=== PATIENT | female | born 1975 | race Caucasian/White ===

== ENCOUNTER → 2018-01-11 12:07 | Outpatient (CLI) | payer BC, SELFPAY ==
--- NOTE | 2018-01-11 12:21 | BI_ITS ---
MAMMOGRAPHY - BILATERAL SCREENING REASON FOR EXAM: Female, 42 years old. Routine annual screening examination. PERTINENT HISTORY: Aunt with breast cancer. TECHNIQUE: Digital bilateral breast tila (3D mammographic acquisition) in the CC and MLO projections. 2-D mediolateral oblique (MLO) and craniocaudad (CC) views of both breasts were obtained. CAD: Full Field Digital Mammography with Computer Added Detection was performed. COMPARISON: Comparison is made with prior outside examination of October 20, 2016. FINDINGS: Breast Composition: The breasts are heterogeneously dense, which may obscure small masses. There are no dominant masses or suspicious calcifications. No other significant abnormalities are identified. There has been no significant change since the prior study. BI/SCREENING MAMM (CAD), BILAT IMPRESSION: Stable bilateral screening mammogram. Yearly follow-up mammogram recommended. (A) ASSESSMENT CATEGORY: BIRADS Category 1: Negative. A letter regarding these results will be sent to the patient by the facility within 30 days. Approximately 10% of breast cancers are not detected by mammography. A normal mammogram should not delay biopsy of a clinically suspicious abnormality. [id number] Electronically Signed: Omar Shelton MD at 13:15 EDT Tel [phone], Service support ,
== END ==
PROVIDERS: Family Provider Family Medicine; PCP Family Medicine
DX: Z12.31 Encounter for screening mammogram for malignant neoplasm of breast (principal)
CPT/HCPCS: 77063; 77067

== ENCOUNTER 2018-07-21 07:38 | Day surgery (SDC) | payer BC, SELFPAY ==
[2018-07-15 15:31] LABS: Hemoglobin 11.8 g/dl (12.0-15.0); Mean Corp Hgb Conc 31.9 g/gl (32-36); Mean Corpuscular Hgb 29.6 pg (27.0-32.0); Mean Corpuscular Volume 92.7 fL (81-99); Mean Platelet Vol. 9.3 fl (6.2-12.0); Platelet Count 271 K/mm3 (150-450); RBC Distribution Width CV 13.1 % (11.6-14.6); RBC Distribution Width SD 44.3 fl (35.1-43.9); Red Blood Count 3.99 M/mm3 (4.2-5.4); White Blood Count 6.7 K/mm3 (4.4-11.0)
[2018-07-15 15:32] LABS: Scan Indicated on CBC? Y/N NO
[2018-07-21] VITALS (7 sets, daily range): BP systolic 117–127; BP diastolic 80–88; PULSE 66–96; RESP 16; TEMP 36.2–36.5; O2SAT 100; BMI 24.8
[2018-07-21 07:58] LABS: Internal QC Validated? YES +Cl - CLEAR BKGD; Pregnancy, Urine Negative Negative
--- NOTE | 2018-07-21 09:30 | EMB_PTH ---
PATIENT: SHANIA JUSTICE (CASS) LOC: [facility] U#:[id number] AGE/SX: 42/F ROOM: RE07/21/[address]: Dr. Layne Owens, MDDOB: 1975 BED: DIS: 07/21/2018 SPEC #: [id number] RECD: 07/21/18 12:33 STATUS: KARLY ENMA #: [id number] BIMAL: 07/21/18 09:[address]: Layne Owens DEPT: SURGICAL PATHOLOGY RECD BY: Josee Anderson ENTERED: 07/21/18 15:42 SP TYPE: ENDOM BX/C OTHR DR: Dr. Randolph Nash MD Tissues: A - Endometrium, NOS B - Fibrous tissue Procedures: Surgery Specimen Level III Surgery Specimen Level IV HEADER OPERATION: Hysteroscopy, D&C, polypectomy PRE-OP DIAGNOSIS: AUB< endometrial polyp TISSUE SUBMITTED: A. Endometrial curettings, B. Mucosal fibroids MICROSCOPIC DIAGNOSIS A. Endometrium curettings: Polypoid fragments of mildly disordered proliferative endometrium Rare fragments of benign endocervix B. Mucosal fibroids: Mildly disordered proliferative endometrium Smooth muscle tissue fragments suggestive of submucosal leiomyoma AM:yoana 07/22/18 MICROSCOPIC DESCRIPTION Slides are reviewed. GROSS DESCRIPTION A. Received is one container labeled with the patient name and designated endometrial curettings. The specimen consists of multiple irregular fragments of pink-luna soft tissue that in aggregate measure 3 x 2.2 x 0.2 cm. The specimen is totally submitted in one cassette. B. Received is one container labeled with the patient name and designated mucosal fibroid. The specimen consists of multiple irregular fragments of pink-white soft tissue that in aggregate measure 2.5 x 2 x 0.2 cm. The specimen is totally submitted in one cassette. /AM:bina 07/21/18 TC: 5 CPT: 08529 x2
--- NOTE | 2018-07-21 11:00 | PCM.OPRPT ---
Report of Operation Date of Procedure: 07/21/18 Pre-Operative Diagnosis: AUB, Endometrial polyp Post-Operative Diagnosis: AUB, submucosal fibroid Surgery/Procedure Performed:: Hysteroscopy, D&C, Myomectomy with symphion Type of Anesthesia:: MAC Specimen's removed: Endometrial curettings and Submucosal fibroid Drains: none Estimated Blood Loss (mL): 5 Description of Procedure: Informed consent was obtained the patient was taken the operating room she was placed in supine position. She was given anesthesia. She was then placed in the [facility] where she was prepped and draped in the normal sterile fashion. At this time the weighted speculum was placed in the posterior fornix of vagina. Single-tooth tenaculum was used to gently grasp the anterior lip the cervix. At this time the uterine cavity was sounded to approximately 8 cm. Gentle dilatation was performed once adequate dilatation of the cervix was achieved the hysteroscope using normal saline as a distention medium was placed. Approximately 2cm submucosal fibroid noted on left side of endometrium and smaller one noted on posterior aspect. Otherwise no gross abnormalities. The Symphion was used to resect fibroids down to base. Tubal ostia then able to be visualized. At This time hysteroscopy was complete. Sharp curettage was performed. Moderate amount of endometrial tissue removed. This will be sent to pathology for evaluation. Procedure was deemed complete successful there are no complications. Anticipated normal postoperative course. Instrument lap count correct ?2. Fluid deficit 600cc Vaginal Sweep was negative. - Complications none - Admit VTE Documentation VTE Present on Admission: Yes VTE Mechan Device Prophylaxis: SCD's VTE Pharm Prophylaxis ordered?: No
--- NOTE | 2018-07-21 11:06 | DCINST_ITS ---
Discharge Diet: No Restrictions Discharge Activity: Return to Normal Activity, May Shower, May Take a Tub Bath - in 2 weeks. May resume sexual activity in: 2 weeks Call your doctor if you observe: Fever of 101 or Higher, Inability to urinate, Using more than one pad per hour Allergies/Adverse Reactions: Allergies Penicillins Allergy (Verified 07/15/18 13:31) Hives cefdinir Adverse Reaction (Verified 07/15/18 13:31) Unknown moxifloxacin [From Avelox] Adverse Reaction (Verified 07/15/18 13:31) Unknown Medications to take at Discharge loratadine 10 mg disintegrating tablet 10 mg PO DAILY 05/31/18 vitamin E (dl, acetate) 400 unit capsule 400 unit PO DAILY 05/31/18 ascorbic acid (vitamin C) 100 mg tablet 100 mg PO DAILY 06/01/18 fluticasone 50 mcg/actuation nasal spray,suspension 2 spray INTRANASAL DAILY PRN 06/01/18 lactobacillus combination no.4 3 billion cell capsule 3,000 mmu cells PO DAILY 06/01/18 Naproxen Sodium [Aleve] 220 mg PO PRN PRN 07/15/18 Primary Care Physician: Randolph Nash MD [Primary Care Provider] - Test Results: Test results from this visit will be discussed in further detail at your follow- up appointment, if applicable. Please Follow Up With: Layne Owens MD When: as scheduled
== END 2018-07-21 13:00 | disposition home or self-care (01) ==
LOC: SDC 07:40 → AC 07:40
PROVIDERS: Family Provider Family Medicine; PCP Family Medicine; Referring Provider Obstetrics & Gynecology; Visit Provider Obstetrics & Gynecology
PROC: 0UB98ZZ Excision of Uterus, Via Natural or Artificial Opening Endoscopic (ICD-10-PCS; CPT 58558; principal; 2018-07-21 09:15)
DX: D25.0 Submucous leiomyoma of uterus (principal); E05.00 Thyrotoxicosis with diffuse goiter without thyrotoxic crisis or storm; Z79.899 Other long term (current) drug therapy
CPT/HCPCS: 00952; 58558; 36415; 81025; 85027; 88304; 88305; J7120; J2405

== ENCOUNTER 2018-09-12 12:45 | Day surgery (SDC) | payer BC, SELFPAY ==
[2018-07-21 08:13] VITALS: BMI 24.8
[2018-09-12 12:58] VITALS: BP 151/75; PULSE 85; RESP 18; TEMP 37.4; O2SAT 100; BMI 25.0
[2018-09-12 13:05] LABS: Internal QC Validated? YES +Cl - CLEAR BKGD
[2018-09-12 13:08] LABS: Pregnancy, Urine Negative Negative
[2018-09-12 13:54] VITALS: BP 117/82; BP 151/75; PULSE 88; RESP 20; TEMP 37.7; O2SAT 99
[2018-09-12 14:00] VITALS: BP 130/84; BP 151/75; PULSE 75; RESP 16; O2SAT 100
--- NOTE | 2018-09-12 14:00 | EGD_PTH ---
PATIENT: SHANIA JUSTICE (CASS) LOC: [place] U#:[id number] AGE/SX: 42/F ROOM: RE09/12/[address]: Dr. Sarina Yañez MD : 1975 BED: DIS: 09/12/2018 SPEC #: [id number] RECD: 09/12/18 17:06 STATUS: KARLY REWagner #: [id number] BIAML: 09/12/18 14:[address]: Sarina Yañez DEPT: SURGICAL PATHOLOGY RECD BY: Javed Rosado ENTERED: 09/13/18 11:38 SP TYPE: EGD BIOPSY OTHR DR: Dr. Randolph Nash MD Tissues: A - Duodenum, NOS B - Gastric mucous membrane Procedures: Surgery Specimen Level IV HEADER OPERATION: EGD ([facility] [place]) PRE-OP DIAGNOSIS: Right upper quadrant pain TISSUE SUBMITTED: A - Second portion of duodenum for gluten allergy, B - Antrum for H. pylori and path MICROSCOPIC DIAGNOSIS A. Second portion of duodenum, biopsy: Fragments of duodenal mucosa, no pathologic diagnosis. B. Antrum, biopsy: Mild gastritis. See microscopic description and comment. SJ:gregorio 09/14/18 COMMENT B. The results of immunohistochemistry for Helicobacter pylori will be reported separately ([id number]). MICROSCOPIC DESCRIPTION Slides are reviewed. B. The specimen shows fragments of gastric mucosa with chronic inflammatory cell infiltrates in the lamina propria consisting of lymphocytes and plasma cells, consistent with mild chronic gastritis. GROSS DESCRIPTION A - Received in fixative is one container labeled with the patient's name and designated second portion of duodenum. The specimen consists of two irregular fragments of light luna soft tissue that in aggregate measure 0.5 x 0.3 x 0.1 cm. The specimen is totally submitted in one cassette. B - Received in fixative is one container labeled with the patient's name and designated antrum. The specimen consists of two irregular fragments of light luna soft tissue that in aggregate measure 0.3 x 0.2 x 0.1 cm. The specimen is totally submitted in one cassette. / AM:gregorio 09/13/18 TC:5 CPT: 73049 x2
--- NOTE | 2018-09-12 14:00 | IMM_PTH ---
PATIENT: SHANIA JUSTICE (CASS) LOC: [place] U#:[id number] AGE/SX: 42/F ROOM: RE09/12/[address]: Dr. Sarina Yañez MD : 1975 BED: DIS: 09/12/2018 SPEC #: [id number] RECD: 09/13/18 13:07 STATUS: KARLY REQ #: [id number] BIMAL: 09/12/18 14:[address]: Sarina Yañez DEPT: IMMUNOHISTOCHEMISTRY RECD BY: Sadie Castillo ENTERED: 09/13/18 13:08 SP TYPE: IMMUNO OTHR DR: Dr. Randolph Nash MD Tissues: B - Stomach, NOS Procedures: H Pylori (initial) PHYSICIAN & INSTITUTION [place] [id number] SPECIMEN INFORMATION: Tissue Source: B - Antrum Clinical Info: Right upper quadrant pain Specimen Number: [id number] CPT code: 20251 METHODOLOGY: Deparaffinized sections of prefer/formalin-fixed tissue or PAP/DQ stained slides are incubated with monoclonal/polyclonal antibodies/oligonucleotide probes. Localization is made via biotin free immunoperoxidase method. Appropriate controls are performed and reacted as expected. Results on target cell population are indicated in the following table: RESULTS: ANTIBODY / CLONE RESULT Block B H Pylori (polyclonal) negative These tests were developed and their performance characteristics determined by [facility]. They may not have been cleared or approved by the U.S. Food and Drug Administration. The FDA has determined that such clearance or approval is not necessary. INTERPRETATION: B. Antrum, biopsy: Negative for Helicobacter pylori organisms. SJ:gregorio 09/14/18
[2018-09-12 14:05] VITALS: BP 125/78; BP 151/75; PULSE 75; RESP 16; O2SAT 100
[2018-09-12 14:15] VITALS: BP 129/82; BP 151/75; PULSE 77; RESP 16; TEMP 37.7; O2SAT 100
--- NOTE | 2018-09-12 14:33 | DCINST_ITS ---
Discharge Diet: No Restrictions Discharge Activity: Return to Normal Activity, May not drive while taking narcotic pain medications. - no driving for 24 hours due to anesthesia, may drive tomorrow morning Allergies/Adverse Reactions: Allergies Penicillins Allergy (Verified 09/07/18 15:08) Hives cefdinir Adverse Reaction (Verified 09/07/18 15:08) Unknown moxifloxacin [From Avelox] Adverse Reaction (Verified 09/07/18 15:08) Unknown Medications to take at Discharge loratadine 10 mg disintegrating tablet 10 mg PO DAILY 05/31/18 vitamin E (dl, acetate) 400 unit capsule 400 unit PO DAILY 05/31/18 ascorbic acid (vitamin C) 100 mg tablet 100 mg PO DAILY 06/01/18 fluticasone 50 mcg/actuation nasal spray,suspension 2 spray INTRANASAL DAILY PRN 06/01/18 lactobacillus combination no.4 3 billion cell capsule 3,000 mmu cells PO DAILY 06/01/18 Naproxen Sodium [Aleve] 220 mg PO PRN PRN 07/15/18 Omeprazole [Prilosec] 20 mg PO DAILY 09/07/18 Primary Care Physician: Randolph Nash MD [Primary Care Provider] - Test Results: Test results from this visit will be discussed in further detail at your follow- up appointment, if applicable. Please Follow Up With: Sarina Yañez MD - call When: to be seen next week, please call for date and time, thanks
--- NOTE | 2018-09-12 14:36 | OP.PCM_ITS ---
Report of Operation Date of Procedure: 09/12/18 Pre-Operative Diagnosis: right upper quadrant abdominal pain Post-Operative Diagnosis: same Surgery/Procedure Performed:: esophagogastroduodenoscopy with biopsies Description of Surgical Findings:: no lesions seen, sample biopsies taken for patient's complaint of right upper quadrant abdominal pain Type of Anesthesia:: MAC Anesthesiologist: Felipa Kwong Specimen's removed: mucosal biopsy of second portion of duodenum, mucosal biopsy of antrum of stomach Estimated Blood Loss (mL): minimal Fluids Replaced: see anesthesia note Description of Procedure: After informed consent was given, the patient was brought to the endoscopy suite and placed in the upright sitting position. Appropriate time out protocol was followed. Appropriate cardiac, blood pressure, and pulse oximetry monitoring was placed. After stable vital signs were noted, the patient was given intravenous conscious sedation. The posterior pharynx was sprayed with lidocaine spray times two and a bite block was placed. The patient was then placed in the left lateral decubitis position. The upper endoscope was lubricated and inserted into the patient?s mouth and then carefully placed into the patient?s throat. The patient was asked to swallow and the endoscope was th en easily advanced into the patient?s esophagus. The endoscope was further advanced down into the patient?s stomach, then past the pylorus, then past the duodenal bulb and then to the second portion of the duodenum. There were no lesions noted in the duodenum. Because of the patient's complaint of right upper quadrant abdominal pain, random mucosal biopsies of the second portion of the duodenum was taken to rule out celiac sprue with cold grasper forceps. The endoscope was then retracted back into the stomach. A retroflex view of the stomach revealed no evidence of any masses. No ulcers, no strictures, no suspicious lesions were noted. Because of the patient's complaint of right upper quadrant abdominal pain, random mucosal biopsies of the antrum of the stomach was obtained using cold grasper forceps to rule out H pylori. The endoscope was retracted into the esophagus, where any insufflated gas in the stomach was aspirated out. The gastroesophageal junction was measured at 38 cm from the patient?s teeth and appeared normal. The remainder of the esophagus was normal. The upper endoscope was removed intact. Patient tolerated procedure well. - Complications none noted
[2018-09-12 14:46] VITALS: BP 151/75
== END 2018-09-12 14:48 | disposition home or self-care (01) ==
LOC: EN 12:46 → AC 12:48
PROVIDERS: Anesthesiology; Family Provider Family Medicine; PCP Family Medicine; Referring Provider Surgery; Visit Provider Surgery
PROC: 0DJ08ZZ Inspection of Upper Intestinal Tract, Via Natural or Artificial Opening Endoscopic (ICD-10-PCS; CPT 43235; principal; 2018-09-12 13:55)
DX: K29.70 Gastritis, unspecified, without bleeding (principal); K21.9 Gastro-esophageal reflux disease without esophagitis; Z79.899 Other long term (current) drug therapy
CPT/HCPCS: 43239; 81025; 88305; 88342; J7050; J7120

== ENCOUNTER 2019-03-26 15:09 | Emergency (ER) | payer BC, SELFPAY ==
[2019-03-26 15:10] VITALS: BP 145/96; PULSE 92; RESP 16; TEMP 36.7; O2SAT 100; BMI 25.1
--- NOTE | 2019-03-26 15:34 | ED.DCSUM_ITS ---
- ER Visit Summary Date of Service: 03/26/19 Chief Complaint: Right small finger laceration History of Present Illness: The patient is a 43 F presenting with laceration to her right small finger. This occurred just prior to arrival. She was cutting vegetables with a vegetable slicer and her hand slipped. She is right-handed. Last tetanus is unknown. No other injuries. Physical Examination: Vitals are stable. Patient is afebrile. Alert no acute distress. HEENT exam is unremarkable. Lungs are clear and equal bilaterally. Heart is regular rate and rhythm. Extremities 1 cm laceration distal finger pad of right small finger. Tendon function is intact. Normal cap refill. Skin is warm and dry. No focal neurologic deficit. Remainder of exam is unremarkable. Emergency Department Course and Treatment: Patient was given tetanus IM. Wound was irrigated. Closed with Dermabond. Advised wound care instructions. Advised return to ED for worsening complaints. Disposition: Discharge home Impression: Right small finger laceration, laceration repair This note was generated with [employer] dictation software. It may contain incorrect words, spelling, and punctuation that were not noted in review of the chart prior to signing ED Disposition - Plan for ED Patient: Instructions: LACERATION, Hand Referrals: Randolph Nash MD [Primary Care Provider] -
[2019-03-26] MEDS: Diphth,Pertuss(Acell),Tet Vac 0.5 ML Vial IM (16:19)
== END 2019-03-26 16:34 | disposition home or self-care (01) ==
LOC: ED 15:54
PROVIDERS: Emergency Provider Emergency Medicine; Family Provider Family Medicine; PCP Family Medicine
DX: S61.216A Laceration without foreign body of right little finger without damage to nail, initial encounter (principal); Z23 Encounter for immunization; K21.9 Gastro-esophageal reflux disease without esophagitis; W26.0XXA Contact with knife, initial encounter; Y93.G1 Activity, food preparation and clean up; Y92.000 Kitchen of unspecified non-institutional (private) residence as the place of occurrence of the external cause; Y99.8 Other external cause status
CPT/HCPCS: 12001; 90471; 90715; 99283

== ENCOUNTER → 2020-01-01 | Outpatient (CLI) | payer BC, SELFPAY ==
[2019-12-21 14:03] VITALS: BMI 25.1
== END | disposition home or self-care (01) ==
LOC: HPRAD 11:33
PROVIDERS: PCP Family Medicine; Referring Provider Chiropractor; Visit Provider Chiropractor
DX: M99.01 Segmental and somatic dysfunction of cervical region (principal)
CPT/HCPCS: 72040

== ENCOUNTER 2022-04-16 11:55 | Day surgery (SDC) | payer BC, SELFPAY ==
[2022-04-16 12:32] VITALS: BP 132/82; PULSE 90; RESP 16; TEMP 36.4; O2SAT 97; BMI 26.2
[2022-04-16] MEDS: Lactated Ringers 1,000 ML 15 ML IV (12:42)
--- NOTE | 2022-04-16 14:09 | OP.COLON_ITS ---
Patient Name: Dedra Worthy Procedure Date: 04/16/2022 1:25 PM Date of : 1975 Age: 46 Procedure: Colonoscopy Indications: Screening for colorectal malignant neoplasm Providers: Sarina Yañez MD Medicines: See the Anesthesia note for documentation of the administered medications Patient Profile: Refer to note in patient chart for documentation of history and physical. Last Colonoscopy: none. The patient's first colonoscopy is today. Complications: No immediate complications. Procedure: Pre-Anesthesia Assessment: - see anesthesia note After I obtained informed consent, the scope was passed under direct vision. Throughout the procedure, the patient's blood pressure, pulse, and oxygen saturations were monitored continuously. The Colonoscope was introduced through the anus and advanced to the cecum, identified by the appendiceal orifice, IC valve and transillumination. The colonoscopy was performed without difficulty. The patient tolerated the procedure well. The quality of the bowel preparation was adequate. Scope In: 1:45:43 PM Scope Withdrawal Time 0 hours 8 minutes 51 seconds Scope Out: 2:03:41 PM Total Procedure Duration Time 0 hours 17 minutes 58 seconds Findings: The perianal and digital rectal examinations were normal. Non-bleeding internal hemorrhoids were found. Impression: - Non-bleeding internal hemorrhoids. - No specimens collected. Recommendation: - Repeat colonoscopy in 10 years for screening purposes. - Return to primary care physician PRN. - Continue present medications. Procedure Code(s): --- Professional --- G0121, Colorectal cancer screening; colonoscopy on individual not meeting criteria for high risk Diagnosis Code(s): --- Professional --- Z12.11, Encounter for screening for malignant neoplasm of colon K64.8, Other hemorrhoids CPT copyright 2017 [employer]. All rights reserved. The codes documented in this report are preliminary and upon sample distributor review may be revised to meet current compliance requirements. MD Sarina Figueroa MD 04/16/2022 2:09:27 PM This report has been signed electronically. Number of Addenda: 0 Note Initiated On: 04/16/2022 1:25 PM
[2022-04-16 14:10] VITALS: BP 115/76; BP 132/82; PULSE 68; RESP 16; TEMP 36.2; O2SAT 100
--- NOTE | 2022-04-16 14:10 | OP.CCLET_ITS ---
04/16/2022 Randolph Nash Re : Colonoscopy procedure for Dedra Worthy Dear Saad This procedure was performed on April. My impressions and recommendations are as follows: Impressions : - Non-bleeding internal hemorrhoids. - No specimens collected. Recommendations : - Repeat colonoscopy in 10 years for screening purposes. - Return to primary care physician PRN. - Continue present medications. My findings are described in the full procedure note, which is enclosed. If I can be of further assistance, please feel free to contact me at Doctor phone number(s): , Work: . Sincerely, MD Sarina Figueroa MD 04/16/2022 2:09:27 PM This report has been signed electronically.
[2022-04-16 14:15] VITALS: BP 114/76; BP 132/82; PULSE 66; RESP 16; O2SAT 100
[2022-04-16 14:20] VITALS: BP 124/82; BP 132/82; PULSE 75; RESP 16; O2SAT 100
[2022-04-16 14:26] VITALS: BP 132/82; BP 136/92; PULSE 73; RESP 16; TEMP 36.5; O2SAT 100
[2022-04-16 14:40] VITALS: BP 132/82
== END 2022-04-16 15:02 | disposition home or self-care (01) ==
LOC: EN 11:59 → AC 11:59
PROVIDERS: PCP Family Medicine; Referring Provider Family Medicine; Visit Provider Surgery
PROC: 0DJD8ZZ Inspection of Lower Intestinal Tract, Via Natural or Artificial Opening Endoscopic (ICD-10-PCS; CPT 45378; principal; 2022-04-16 13:25)
DX: Z12.11 Encounter for screening for malignant neoplasm of colon (principal); K64.8 Other hemorrhoids; M99.01 Segmental and somatic dysfunction of cervical region; M99.03 Segmental and somatic dysfunction of lumbar region; M99.02 Segmental and somatic dysfunction of thoracic region; M99.05 Segmental and somatic dysfunction of pelvic region
CPT/HCPCS: 45378; J7120; J2405

== ENCOUNTER 2022-08-23 15:14 | Emergency (ER) | payer BC, SELFPAY ==
[2022-08-23 15:15] VITALS: BP 186/114; PULSE 102; RESP 15; TEMP 36.7; O2SAT 100; BMI 27.8
--- NOTE | 2022-08-23 15:35 | EKG12_ITS ---
Test Reason : PALP Blood Pressure : / mmHG Vent. Rate : 100 BPM Atrial Rate : 100 BPM P-R Int : 144 ms QRS Dur : 074 ms QT Int : 336 ms P-R-T Axes : 071 037 057 degrees QTc Int : 433 ms Normal sinus rhythm Normal ECG Confirmed by SHASHI GOLDEN, KIKO ([id number]), staff editor GOKUL JAIMES ([id number]) on 08/24/2022 12:56:03 PM Referred By: KEL Confirmed By:KIKO DANIELLE MD
--- NOTE | 2022-08-23 15:42 | EDS_ITS ---
HPI History of Present Illness Chief Complaint: Palpitations Narrative Narrative: 46-year-old female past medical history of whitecoat syndrome/hypertension, history of Graves' disease, presents with palpitations that she experienced twice today. The first episode was at 9:00 this morning almost 7 hours ago. She was sitting in her recliner and felt a fast, pounding heart rate. It may have skipped a beat. She denies any chest pain or shortness of breath but states that she felt odd. It only lasted a few minutes. Then 20 minutes ago, it happened again. She states she did not feel quite right. That lasted approximately 20 minutes and has improved. She states that when she checked her heart rate on her watch it was anywhere from 135 to 150 bpm. She denies any nausea or vomiting. No diaphoresis. No exacerbating or alleviating factors. No recent diarrhea. She states that she is perimenopausal and has not had a menstrual period in over 60 days. 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 Home Medications vitamin E (dl, acetate) 180 mg (400 unit) capsule 400 unit PO DAILY 05/31/18 [History Last Taken 04/09/22] ascorbic acid (vitamin C) 100 mg tablet 100 mg PO DAILY 06/01/18 [History Last Taken 04/09/22] lactobacillus combination no.4 3 billion cell capsule (Probiotic) 3,000 mmu cells PO DAILY 06/01/18 [History Last Taken 04/09/22] montelukast 10 mg tablet 5 mg PO DAILY 03/26/19 [History Last Taken 04/15/22] calcium carb-ergocalciferol (vit D2) 600 mg calcium-200 unit tablet 600 tab PO 04/16/22 [History Last Taken 04/09/22] Allergy/AdvReac Type Severity Reaction Status Date / Time Penicillins Allergy Hives Verified 08/23/22 15:15 cefdinir AdvReac Unknown Verified 08/23/22 15:15 moxifloxacin [From Avelox] AdvReac Unknown Verified 08/23/22 15:15 Family History Sister Myotonia congenita Hypertension Mother Heart disease Hypertension Father Cancer Brother Hypertension Grandfather Hypertension Grandmother Hypertension Surgical History History of dilatation and curettage Status post excision of lipoma [place] teeth extracted Social History Smoking Status: Never smoker alcohol intake: current alcohol intake frequency: holidays/special occasions only substance use type: does not use what type of physical activity do you participate in: walking and aerobics frequency: 3-4 times per week ROS ROS ED ROS Narrative Constitutional: No fever, no chills. HEENT: No sore throat. No neck pain. No loss of vision. No rhinorrhea. Cardiovascular: No chest pain. Positive palpitations, unsure if skipping a beat, with a rate 135 -150. No pedal edema. Respiratory: No cough, no shortness of breath. Abdominal: No abdominal pain. No nausea. No vomiting. Genitourinary: No dysuria. No hematuria. Musculoskeletal: No myalgias. No arthralgias. Neurologic: No headaches. No dizziness. No lightheadedness. Skin: No rash. No change in color. Psychiatric: No depression. No anxiety. EXAM Physical Exam Narrative Exam Narrative: Afebrile. Vital signs noted. HEENT: Normocephalic. Atraumatic. PERRL, EOMI. Neck soft and supple. No point tenderness or step off. Cardiovascular: Mild tach cardia 102 no murmurs, rubs, or gallops appreciated. Respiratory: No tachypnea. Lungs clear to auscultation bilaterally. Gastrointestinal: Abdomen soft, nontender, with normoactive bowel sounds. No rebound or guarding. Neurological: Awake. Alert. Nonfocal, nonlateralizing. Skin: No rash. Normal color. No pallor. Musculoskeletal: No pedal edema. Full range of motion extremities. Const Vital Signs: 08/23/22 15:15 08/23/22 15:36 08/23/22 16:16 Temperature 98.1 F Temperature Source Temporal Pulse Rate 102 H 104 H Respiratory Rate 15 16 Respiratory Pattern Normal Blood Pressure 186/114 H 154/85 H Blood Pressure Mean 138 108 Pulse Ox 100 99 Oxygen Delivery Method Room Air Room Air 08/23/22 16:18 08/23/22 17:33 08/23/22 18:30 Temperature Temperature Source Pulse Rate 82 83 Respiratory Rate 14 16 Respiratory Pattern Blood Pressure 128/79 H 133/80 H Blood Pressure Mean 95 97 Pulse Ox 99 96 95 Oxygen Delivery Method Room Air Room Air Room Air MDM MDM MDM Narrative Medical decision making narrative: Given the description of the elevated heart rate, she may be experiencing paroxysmal atrial fibrillation. She will be placed on a sales and leasing agent. Comprehensive work-up was pursued including EKG, CBC, CMP, magnesium, D-dimer, and troponins. I will obtain a chest x-ray. My interpretation of her chest x-ray shows no acute process, no pneumonia or pneumothorax. CBC shows normal white count of 7.4, hemoglobin normal at 14.4 with normal platelet count of 262. D-dimer negative at 0.37. Electrolyte panel shows no acute abnormality, normal glucose of 133 with an anion gap of 5. Magnesium normal at 2.2. Initial high-sensitivity troponin is 4. EKG interpreted by myself demonstrates normal sinus rhythm at 100 bpm without ectopy or acute ST changes. No STEMI. As long as her second 2-hour troponin is negative, I do feel that she could be discharged to follow-up with her primary care provider. It is 9 for a delta troponin less than 7. She was also referred to cardiology and told that she may need to wear a Holter monitor. She was told to return with elevated heart rate that is more consistent as she may be having paroxysmal atrial fibrillation. Disposition is discharged home in stable condition. Lab Data Labs: Laboratory Results - last 24 hr 08/23/22 08/23/22 08/23/22 16:15 16:15 16:15 WBC 7.4 RBC 4.59 Hgb 14.2 Hct 41.7 MCV 90.8 MCH 30.9 MCHC 34.1 RDW Std Deviation 42.4 RDW Coeff of Saira 13.0 Plt Count 262 MPV 8.9 Immature Gran % (Auto) 0.500 Neut % (Auto) 66.1 Lymph % (Auto) 24.1 [place] % (Auto) 7.8 Eos % (Auto) 1.1 Baso % (Auto) 0.4 Absolute Neuts (auto) 4.9 Absolute Lymphs (auto) 1.78 Nucleated RBC % 0 D-Dimer Quant (PE/DVT) 0.37 Sodium 140 Potassium 3.6 Chloride 107 Carbon Dioxide 28.0 Anion Gap 5 BUN 11 Creatinine 0.85 Estim Creat Clear Calc 91.45 Est GFR (MDRD) Af Amer 91 Est GFR (MDRD) Non-Af 76 BUN/Creatinine Ratio 12.9 Glucose 133 H Calcium 8.7 Magnesium 2.2 Total Bilirubin 0.30 AST 10 L ALT 22 Alkaline Phosphatase 60 Troponin I High Sens 4 Total Protein 7.1 Albumin 3.7 Globulin 3.4 Albumin/Globulin Ratio 1.1 08/23/22 18:30 WBC RBC Hgb Hct MCV MCH MCHC RDW Std Deviation RDW Coeff of Saira Plt Count MPV Immature Gran % (Auto) Neut % (Auto) Lymph % (Auto) [place] % (Auto) Eos % (Auto) Baso % (Auto) Absolute Neuts (auto) Absolute Lymphs (auto) Nucleated RBC % D-Dimer Quant (PE/DVT) Sodium Potassium Chloride Carbon Dioxide Anion Gap BUN Creatinine Estim Creat Clear Calc Est GFR (MDRD) Af Amer Est GFR (MDRD) Non-Af BUN/Creatinine Ratio Glucose Calcium Magnesium Total Bilirubin AST ALT Alkaline Phosphatase Troponin I High Sens 9 Total Protein Albumin Globulin Albumin/Globulin Ratio Radiography Diagnostic Testing: Clinical Impression(s) from Imaging Studies Chest X-Ray 08/23/22 16:40 IMPRESSION: Normal x-ray examination of the chest. Electronically Signed: Javed Rivera MD at 17:24 EST Reading Location ID and State: [address] [place] [address] Tel , Service support , Discharge Plan Triage Chief Complaint: Palpitations ED Provider: Osmin Worthington Dx/Rx/DC Orders Clinical Impression: Palpitations, Situational hypertension Instructions: ED Palpitations Prescriptions: No Action ascorbic acid (vitamin C) 100 mg tablet 100 mg tablet 100 mg PO DAILY Probiotic 3 billion cell capsule 3,000 mmu cells PO DAILY vitamin E (dl, acetate) 400 unit capsule 400 unit PO DAILY montelukast 10 MG tablet 5 mg PO DAILY Calcium + Vitamin D 600 mg calcium- 200 unit Tablet 600 tab PO Primary Care Provider: Randolph Nash Referrals: Randolph Nash MD [Primary Care Provider] - As soon as possible Chavo Patel MD [Med Staff - Active Staff] - As Needed Activity Restrictions/Additional Instructions: Your work-up today was negative. You may need follow-up with cardiology versus your primary care physician and wear a Holter monitor for 24 hours should you experience heart palpitations again. Disposition Disposition: Home, Self Care
[2022-08-23 16:16] VITALS: BP 154/85; PULSE 104; RESP 16; O2SAT 99
[2022-08-23 16:18] VITALS: O2SAT 99
[2022-08-23 16:25] LABS: Absolute Lymphocyte Count 1.78 X10^3/uL (0.83-4.51); Absolute Neutrophil Count 4.9 X10^3/uL (2.0-7.7); Basophil# 0.03 X10^3/uL; Basophil% 0.4 % (0-1); Eosinophil# 0.08 X10^3/uL; Eosinophils% 1.1 % (0-5); Hematocrit 41.7 % (37-47); Hemoglobin 14.2 g/dL (12.0-15.0); Lymphocyte # 1.78 X10^3/ul (0.83-4.51); Lymphocyte % 24.1 % (19-41); Mean Corp Hgb Conc 34.1 g/dL (32-36); Mean Corpuscular Hgb 30.9 pg (27.0-32.0); Mean Corpuscular Volume 90.8 fL (81-99); Mean Platelet Vol. 8.9 fl (6.2-12.0); Monocyte# 0.58 X10^3/uL; Monocyte% 7.8 % (0-10); NRBC Flagged by Analyzer 0 % (0-5); Neutrophil # 4.88 X10^3/uL (2.7-7.7); Neutrophil % 66.1 % (47-70); Platelet Count 262 K/mm3 (150-450); RBC Distribution Width SD 42.4 fl (35.1-43.9); Red Blood Count 4.59 M/mm3 (4.2-5.4); White Blood Count 7.4 K/mm3 (4.4-11.0)
[2022-08-23 16:37] LABS: D-Dimer Quantitative (DVT/PE) 0.37 FEU/ug/m (0.27-0.49)
--- NOTE | 2022-08-23 16:40 | RAD_ITS ---
STUDY: X-RAY CHEST REASON FOR EXAM: Female, 46 years old. chest pain TECHNIQUE: Single AP portable view of the chest. COMPARISON: None. FINDINGS: The lungs are clear and expanded. There is no demonstrated pleural abnormality. Normal size heart. Normal mediastinum and tova. Normal visualized pulmonary arteries. Normal visualized aortic arch and descending thoracic aorta. Normal visualized thoracic spine. Normal visualized ribs, clavicles, and shoulders. There is no demonstrated abnormality of the visualized soft tissue structures of the upper abdomen. RAD/Chest 1 View (Portable) IMPRESSION: Normal x-ray examination of the chest. Electronically Signed: Javed Rivera MD at 17:24 [facility] ,
[2022-08-23 16:44] LABS: ALB/GLOB Ratio 1.1 RATIO (0.9-2.4); AST(SGOT) 10 U/L (15-37); Alanine Aminotransfer ALT/SGPT 22 U/L (13-56); Albumin, Serum 3.7 g/dL (3.2-5.0); Alkaline Phosphatase 60 U/L (45-117); Anion Gap 5 (5-15); BUN 11 mg/dL (7-18); BUN/Creat Ratio 12.9 RATIO (10-20); Calcium,Total 8.7 mg/dL (8.5-10.1); Chloride 107 mmol/L (98-107); Creatinine, Serum 0.85 mg/dL (0.55-1.02); EST Glomerular Filtration Rate 76 mL/min (>60); Est Glom Filt Rate - Afr Amer 91 mL/min (>60); Estimated Creatinine Clearance 91.45 ml/min; Globulin 3.4 g/dL (2.2-4.2); Glucose 133 mg/dL (74-106); Magnesium 2.2 mg/dL (1.6-2.6); Potassium 3.6 mmol/L (3.5-5.1); Protein, Total 7.1 g/dL (6.4-8.2); Sodium Level 140 mmol/L (136-145); Troponin-I HS (w/2H Reflex) 4 pg/mL (3.0-54.0)
[2022-08-23] MEDS: 0.9% Normal Saline 1,000 ML 1000 ML IV (16:52)
[2022-08-23 17:33] VITALS: BP 128/79; PULSE 82; RESP 14; O2SAT 96
[2022-08-23 18:23] LABS: Reflex Troponin-HS? (from REC) Y
[2022-08-23 18:30] VITALS: BP 133/80; PULSE 83; RESP 16; O2SAT 95
[2022-08-23 18:57] LABS: Troponin-I HS 9 pg/mL (3.0-54.0)
== END 2022-08-23 19:27 | disposition home or self-care (01) ==
PROVIDERS: Emergency Provider Emergency Medicine; PCP Family Medicine; Visit Provider Emergency Medicine
DX: R00.2 Palpitations (principal); I10 Essential (primary) hypertension
CPT/HCPCS: 71045; 80053; 83735; 84484; 85025; 85379; 93005; 96360; 96361; 99284; A4216